=== PATIENT | female | born 1960 | race Caucasian/White ===

== ENCOUNTER 2016-09-25 08:18 | Observation (INO) | payer BC ==
[2016-09-20 13:41] LABS: HEMATOCRIT 39.2 % (36.0-48.0); HEMOGLOBIN 12.8 g/dL (12.0-16.0)
[2016-09-20 13:47] LABS: CALCIUM, SERUM 8.4 MG/DL (8.5-10.4); CHLORIDE, SERUM 113 MMOL/L (96-112); CO2 (CARBON DIOXIDE) 25 MMOL/L (24-34); CREATININE 0.95 MG/DL (0.55-1.02); GFR AFRICAN AMERICAN 77 ML/MIN (>=60); GFR NON AFRICAN AMERICAN 66 ML/MIN (>=60); POTASSIUM, SERUM 3.4 MMOL/L (3.5-5.3); SODIUM, SERUM 146 MMOL/L (135-148)
[2016-09-20 13:48] LABS: BUN (BLOOD UREA NITROGEN) 10 MG/DL (6-23); GLUCOSE, SERUM 125 MG/DL (60-99)
--- NOTE | ~2016-09-25 | OP ---
Record Of [facility] [address] [place]. [address] NAME: EMI FONTENOT : 58 STATUS : ADM Candy PAT#: [id number] AGE: 56 ADM/REG DATE : 09/25/16 MR#: [id number] REPORT SERV DATE: 09/26/16 DICTATED BY: SCARLET VELASCO DATE: 09/25/16 REPORT STATUS : Draft TRANSCRIBED BY: MODL DATE: 09/25/16 DATE OF PROCEDURE: 09/25/2016 PREOPERATIVE DIAGNOSIS: Left thyroid nodule. POSTOPERATIVE DIAGNOSIS: Left thyroid nodule. PROCEDURE: Left thyroid lobectomy. SURGEON: Scarlet Velasco MD RESIDENT SURGEON: Leo Austin MD. ANESTHESIA: General. ESTIMATED BLOOD LOSS: Approximately 15 mL. IV FLUIDS: 700 mL of crystalloid. SPECIMEN: Left thyroid lobe. DRAINS: None. COMPLICATIONS: None. FINDINGS: The patient had a grossly appearing left thyroid lobe. The left recurrent laryngeal nerve was easily identified, this was left inferior thyroid artery. INDICATIONS FOR PROCEDURE: This is a 56-year-old female, who was noted by her oncologist, and noted to have a 1.6 cm left thyroid nodule. This is concerning to the patient. FNA had been done in office, the pathology revealed benign follicular nodule. The presence of the nodule was very concerning to the patient and other physicians. She has a significant past medical history of cancer, breast cancer to be exact, and the patient desired to have the left lower lobe removed. The procedure, risks, benefits, and alternatives had been explained to the patient. She expressed clear verbal understanding and wished to proceed forward with this elective procedure. DESCRIPTION OF PROCEDURE: After informed consent was obtained, the patient was taken back to the operative theater, the patient was laid on operating room table in the supine position. The patient was given adequate analgesia and anesthesia, and then successfully endotracheally intubated with a NIM tube. The surgery site was then prepped and draped in a standard fashion with the NIM tube connected. A formal time-out was performed. Appropriate preoperative antibiotics had been administered. All present in the room were in agreement and elected to proceed for the procedure. We began by making a transverse incision approximately two fingerbreadths above the clavicular head in the skin crease that was approximate 4 cm in length. I dissected down through the subcutaneous tissue and platysma Record Of Operation [facility] [address] [place]. [address] NAME: EMI FONTENOT : 58 STATUS : ADM Candy PAT#: [id number] AGE: 56 ADM/REG DATE : 09/25/16 MR#: [id number] REPORT SERV DATE: 09/26/16 DICTATED BY: SCARLET VELASCO VICKIE DATE: 09/25/16 REPORT STATUS : Draft TRANSCRIBED BY: GINA DATE: 09/25/16 muscle with electrocautery. Subplatysmal flaps were then raised. The midline raphe a was then ensured with electrocautery. The left the sternohyoid muscle was from the sternothyroid muscle. Then the left sternothyroid muscle was then dissected off thyroid goiter with electrocautery all way to the carotid sheath. We then while rolling the left thyroid lobe anteromedially, as well as pulling it inferior, the anterior suspensory ligament was incised with electrocautery. The left sternal thyroid muscles were divided at the level of the superior pole with the Harmonic scalpel. The individual branches of the left superior thyroid artery and vein were divided with the aid of Harmonic Scalpel as well as clips. We proceeded around staying directly on the thyroid capsule, dissecting the left superior parathyroid gland was dissected free and stayed down. We continued our dissection around left lower pole. The thyroid gland was then rolled anteromedially on the left. The sternal thyroid muscle was divided at the level of lower pole of the thyroid gland as well with Harmonic Scalpel. We then used blunt dissection on the thyroid capsule bluntly, and dissected towards the left tracheoesophageal groove. We found the left inferior thyroid artery and this helped us locate the left recurrent laryngeal nerve. Then staying anterior to this and continued our dissection using a combination of clips and sharp transection with Metzenbaum scissors, freeing up the tissue off the left thyroid lobe, keeping the recurrent laryngeal nerve insight, and the monitoring with the NIM stimulator, having good signal return. Once, we traced it back toward its insertion, we then clamped the anterior to it on the thyroid tissue itself and sharply transected with a 15 blade scalpel, leaving the small remnant of thyroid tissue, and suture ligating the remnant. Thus ensuring we stayed anterior to the recurrent laryngeal nerve. We continued to have a good signal, we continued this until we came to the ligament of Donis. We then used electrocautery and Harmonic scalpel to then remove and transect the remainder going through the isthmus. Specimen was placed in the superior pole of the left lower lobe for identification for pathology and passed off the surgical field. We then reviewed the wound bed, irrigated it thoroughly and hemostasis was noted to have been achieved. A Surgicel was placed into the wound bed and extra measure to assure hemostasis. The strap muscles were then reapproximated with 3-0 Vicryl in a simple running fashion leaving a small window opened inferiorly. Platysma was then reapproximated 4-0 Vicryl in a simple interrupted fashion. The subcutaneous tissue/dermal layer was reapproximated with a 5-0 Monocryl in simple running fashion. Subcuticular running was then performed with 5-0 Prolene, but this was not tied. Dermabond was then placed to the skin edges which had been reapproximated well. Hemostasis had been achieved. Once the Dermabond dried, the 5-0 Prolene suture was removed. Sterile drapes were then broken down. The patient was reversed from anesthesia and successfully extubated in the operating room. The patient was awake. Vital sings were stable. The patient was transferred to the recovery room in stable condition. DICTATED BY: MD BRANDEN Khan/GINA Scarlet Velasco MD / [id number] Record Of Operation [address] [address] NAME: EMI FONTENOT : 58 STATUS : ADM Candy PAT#: [id number] AGE: 56 ADM/REG DATE : 09/25/16 MR#: [id number] REPORT SERV DATE: 09/26/16 DICTATED BY: SCARLET VELASCO FERNWOOD DATE: 09/25/16 REPORT STATUS : Draft TRANSCRIBED BY: MODL DATE: 09/25/16 CC: MD NATALIIA IglesiasKYLERROSE NOBLE
[~2016-09-25 08:18] MED LIST: EFFEXOR XR150 MG PO; EFFEXXR75 PO; I20 PO; LORTAB10 PO; LYRICA150 MG PO; MAXALT10 MG PO; NOLV10 PO; PERCOCET 10/3251 TAB PO; SOMATAB PO; TOPAMAX100 PO; XANAX1 MG PO
[2016-09-26] MEDS ORDERED: PCET PO (08:02)
== END 2016-09-26 10:45 | disposition home or self-care (01) ==
LOC: SDC 08:18 → PACU 13:39 → 4SO 15:01
PROVIDERS: Surgery
PROC: 0GTG0ZZ Resection of Left Thyroid Gland Lobe, Open Approach (ICD-10-PCS; principal; 2016-09-25 10:00)
DX: E04.1 Nontoxic single thyroid nodule (principal); G43.909 Migraine, unspecified, not intractable, without status migrainosus; M19.90 Unspecified osteoarthritis, unspecified site; F17.210 Nicotine dependence, cigarettes, uncomplicated; Z90.710 Acquired absence of both cervix and uterus; Z90.722 Acquired absence of ovaries, bilateral; Z98.890 Other specified postprocedural states; Z79.899 Other long term (current) drug therapy; Z88.8 Allergy status to other drugs, medicaments and biological substances
CPT/HCPCS: 80048; 82962; 85014; 85018; 88307; 93005; 96372; 96374; A9270-GY; G0378; J0690; J1170; J2250; J2405; J2710; J3010